=== PATIENT | female | born 1965 | race Asian ===

== ENCOUNTER 2018-10-10 15:38 | Emergency (ER) | payer OTHER ==
[2018-10-10 16:12] VITALS: BP 139/92
--- NOTE | 2018-10-10 18:28 | UC ---
Respiratory Complaint HPI - HPI Summary HPI Summary: 2 days of mild cough and nasal congestion. Reports temperature of 100 yesterday but no fever today. Has lost her voice. Denies any sore throat or ear pain. - History of Current Complaint Chief Complaint: UCGeneralIllness Stated Complaint: SORE THROAT Time Seen by Provider: 10/10/18 18:06 Hx Obtained From: Patient Hx Last Menstrual Period: easter bunny Onset/Duration: Gradual Onset, Lasting Days, Still Present Timing: Constant Severity Initially: Mild Severity Currently: Mild Pain Intensity: 0 Pain Scale Used: 0-10 Numeric Character: Cough: Nonproductive Aggravating Factors: Nothing Alleviating Factors: Nothing Associated Signs And Symptoms: Positive: Fever - RESOLVED, URI, Nasal Congestion , Hoarseness. Negative: Dyspnea, Wheezing, Dizziness - Allergies/Home Medications Allergies/Adverse Reactions: Allergies Allergy/AdvReac Type Severity Reaction Status Date / Time No Known Allergies Allergy Verified 10/10/18 16:12 Home Medications: Home Medications Dm/PE/Acetaminophen/Doxylamine [Vicks Nyquil Severe Cold-Flu] 1 liq PO DAILY PRN 10/10/18 [History Confirmed 10/10/18] PMH/Surg Hx/FS Hx/Imm Hx Previously Healthy: Yes - Surgical History Surgical History: None - Family History Known Family History: Positive: Non-Contributory - Social History Alcohol Use: None Substance Use Type: None Smoking Status (MU): Never Smoked Tobacco Review of Systems All Other Systems Reviewed And Are Negative: Yes Constitutional: Positive: Fever Eyes: Positive: Negative ENT: Positive: Nasal Discharge, Other - LOST VOICE. Negative: Sore Throat, Ear Ache Respiratory: Positive: Cough. Negative: Shortness Of Breath Cardiovascular: Positive: Negative Gastrointestinal: Positive: Negative Neurological: Positive: Negative Physical Exam Triage Information Reviewed: Yes Appearance: Well-Appearing, No Pain Distress, Well-Nourished Vital Signs: Initial Vital Signs Temp 99.2 F 10/10/18 16:07 Pulse 74 10/10/18 16:07 Resp 16 10/10/18 16:07 BP 139/92 10/10/18 16:07 Pulse Ox 100 10/10/18 16:07 Laboratory Tests 10/10/18 17:07 Group A Strep Rapid Negative Vital Signs Reviewed: Yes Eyes: Positive: Conjunctiva Clear ENT: Positive: Hearing grossly normal, Pharynx normal, TMs normal, Hoarse voice Neck: Positive: Supple, Nontender, No Lymphadenopathy Respiratory Exam: Normal Cardiovascular Exam: Normal Abdomen Description: Positive: Soft Musculoskeletal: Positive: No Edema Neurological: Positive: Alert Psychological: Positive: Age Appropriate Behavior Skin: Negative: Rashes UC Diagnostic Evaluation - Laboratory O2 Sat by Pulse Oximetry: 100 Respiratory Course/Dx - Differential Dx/Diagnosis Provider Diagnosis: Upper respiratory infection, Laryngitis Discharge - Sign-Out/Discharge Documenting (check all that apply): Patient Departure All imaging exams completed and their final reports reviewed: No Studies - Discharge Plan Condition: Stable Disposition: HOME Prescriptions: predniSONE TAB* [Deltasone 20 MG TAB*] 40 mg PO DAILY #10 tab Patient Education Materials: Laryngitis (ED), Upper Respiratory Infection (ED) Forms: *Work Release Referrals: [facility] [Provider Group] - If Needed Additional Instructions: YOUR SYMPTOMS ARE LIKELY VIRALLY MEDIATED AND SHOULD RESOLVE ON THEIR OWN WITH TIME. NO INDICATION FOR ANTIBIOTICS AT PRESENT. REST, HYDRATE, OTC MEDS NEEDED. WILL TREAT WITH PREDNISONE TO HELP WITH INFLAMMATION OF YOUR VOCAL CORDS. SEEK FOLLOW-UP IF YOU ARE NOT IMPROVING OVER THE NEXT 1-2 WEEKS. YOU MAY BENEFIT FROM ENT EVALUATION OF YOUR VOICE IS NOT RETURNING. - Billing Disposition and Condition Condition: STABLE Disposition: Home
== END 2018-10-10 18:30 | disposition home or self-care (01) ==
LOC: UCEAST 15:38
DX: J06.9 Acute upper respiratory infection, unspecified (principal); J04.0 Acute laryngitis
CPT/HCPCS: 87651; 99202; G0463